=== PATIENT | female | born 1990 | race Hispanic/Latino ===

== ENCOUNTER 2024-02-24 10:56 | Outpatient (CLI) | payer OTHER | END 2024-02-24 10:57 | disposition home or self-care (01) | LOC: CSHULT 10:56 | DX: Z34.02 Encounter for supervision of normal first pregnancy, second trimester (principal); Z33.1 Pregnant state, incidental; Z3A.21 21 weeks gestation of pregnancy | CPT/HCPCS: 76805 ==